=== PATIENT | female | born 2000 | race Caucasian/White ===

== ENCOUNTER 2020-03-20 10:15 | Emergency (ER) | payer SELFPAY ==
[~2020-03-20] VITALS: Ht 152.4 cm; Wt 54.0 kg
[2020-03-20 11:37] LABS: BILIRUBIN,URINE NEGATIVE (NEG); CLARITY,URINE CLEAR; COLOR,URINE YELLOW; NITRITE,URINE NEGATIVE (NEG); PROTEIN,URINE NEGATIVE (NEG-TRACE)
[2020-03-20 11:51] LABS: RBC,URINE OCC /HPF (0-2)
[2020-03-20 11:52] LABS: BACTERIA,URINE MANY /HPF (0-FEW)
[2020-03-20 13:00] VITALS: BP 107/52
[2020-03-20] MEDS ORDERED: CEPH500T PO (13:33)
[2020-03-20] MEDS ORDERED: PNV1TABL12 PO (13:33)
--- NOTE | 2020-03-20 13:34 | PHYS DOC ---
Past Medical History Past Medical History: No Pertinent History Past Surgical History: No Surgical History Smoking Status: Never Smoker Alcohol Use: None Drug Use: None General Adult EDM: Chief Complaint: ABDOMINAL PAIN HPI: HPI: Patient is a 19 year old female presents emergency department complaining of lo w abdomen cramping off and on for the past 2 weeks. Patient states it feels just like her normal menstrual cramping. Patient states her last menstrual period was February 022019. Patient states that she has a history of irregular menstrual cycles. Patient states that when she was considering whether or not she could be she had a brief episode of dizziness that lasted 5 to 10 seconds yesterday morning. Patient denies any vaginal discharge, denies any urinary tract infection type signs and symptoms, denies STI concerns. Patient states no one else living of her home is having the same symptoms that she. Patient denies any other physical complaints or physical symptoms. Review of Systems: Review of Systems: 14 body systems of review of systems have been reviewed. See HPI for pertinent positives and negative responses, otherwise all other systems are negative, nonpertinent or noncontributory. Heart Score: Risk Factors: Risk Factors: DM, Current or recent (<one month) smoker, HTN, HLP, family history of CAD, obesity. Risk Scores: Score 0 - 3: 2.5% MACE over next 6 weeks - Discharge Home Score 4 - 6: 20.3% MACE over next 6 weeks - Admit for Clinical Observation Score 7 - 10: 72.7% MACE over next 6 weeks - Early Invasive Strategies Allergies: Allergies: Allergies Coded Allergies Type Severity Reaction Last Updated Verified No Known Drug Allergies 07/07/14 No Physical Exam: PE: Constitutional: Well developed, well nourished, no acute distress, non-toxic appearance. HENT: Normocephalic, atraumatic, bilateral external ears normal, oropharynx moist, no oral exudates, nose normal. Eyes: PERRLA, EOMI, conjunctiva normal, no discharge. Neck: Normal range of motion, no tenderness, supple, no stridor. Cardiovascular:Heart rate regular rhythm, no murmur Lungs & Thorax: Bilateral breath sounds clear to auscultation Abdomen: Bowel sounds normal, soft, no tenderness, no masses, no pulsatile masses. Skin: Warm, dry, no erythema, no rash. Back: No tenderness, no CVA tenderness. Extremities: No tenderness, no cyanosis, no clubbing, ROM intact, no edema. Neurologic: Alert and oriented X 3, normal motor function, normal sensory function, no focal deficits noted. Psychologic: Affect normal, judgement normal, mood normal. Current Patient Data: Labs: Laboratory Tests Test 03/20/20 10:55 03/20/20 10:58 Urine Collection Type Unknown Urine Color Yellow Urine Clarity Clear Urine pH 6.0 Urine Specific [place] 1.025 Urine Protein Negative mg/dL Urine Glucose (UA) Negative mg/dL Urine Ketones (Stick) 40 mg/dL Urine Blood Negative Urine Nitrite Negative Urine Bilirubin Negative Urine Urobilinogen Dipstick 1.0 mg/dL Urine Leukocyte Esterase Trace Urine RBC Occ /HPF Urine WBC 1-4 /HPF Urine Squamous Epithelial Cells Many /LPF Urine Bacteria Many /HPF Urine Mucus Marked /LPF Bedside Urine HCG, Qualitative Hcg positive Laboratory Tests Test 03/20/20 10:55 03/20/20 10:58 Urine Collection Type Unknown Urine Color Yellow Urine Clarity Clear Urine pH 6.0 (<5.0-8.0) Urine Specific [place] 1.025 (1.000-1.030) Urine Protein Negative mg/dL (NEG-TRACE) Urine Glucose (UA) Negative mg/dL (NEG) Urine Ketones (Stick) 40 mg/dL (NEG) Urine Blood Negative (NEG) Urine Nitrite Negative (NEG) Urine Bilirubin Negative (NEG) Urine Urobilinogen Dipstick 1.0 mg/dL (0.2 mg/dL) Urine Leukocyte Esterase Trace (NEG) Urine RBC Occ /HPF (0-2) Urine WBC 1-4 /HPF (0-4) Urine Squamous Epithelial Cells Many /LPF Urine Bacteria Many /HPF (0-FEW) Urine Mucus Marked /LPF POC Urine HCG, Qualitative Hcg positive (Negative) Vital Signs: Vital Signs Date Time Temp Pulse Resp B/P (MAP) Pulse Ox O2 Delivery O2 Flow Rate FiO2 03/20/20 11:04 98.5 84 21 132/77 (95) 99 Room Air 98.5 EKG: EKG: [] Radiology/Procedures: Radiology/Procedures: [] Course & Med Decision Making: Course & Med Decision Making Pertinent Labs and Imaging studies reviewed. (See chart for details) 19-year-old female, vital signs reviewed, presents emergency department with intermittent low abdomen pain. Physical exam was unremarkable. Urine was concerning for simple cystitis, the patient has . She is now a G1, P0. None concerning signs and symptoms of miscarriage. Discussed positive test with patient and urinary tract infection. Patient gave verbal understanding of discharge home instructions, antibiotic use and vitamin use, follow-up with OB specialist soon, return to ER precautions and concerns, patient discharged home without incident. Impression: #1 first trimester #2 urinary tract infection Dragon Disclaimer: Dragmillie Disclaimer: This electronic medical record was generated, in whole or in part, using a voice recognition dictation system. Departure Departure Impression: Primary Impression: Qualified Codes: Z3A.01 - Less than 8 weeks gestation of Additional Impression: UTI (urinary tract infection) Qualified Codes: N30.00 - Acute cystitis without hematuria Disposition: 01 DC HOME SELF CARE/HOMELESS Condition: GOOD Referrals: NO PCP (PCP) SILAS GORDON MD Patient Instructions: ABCs of , - Urinary Tract Infection Additional Instructions: Take antibiotics and vitamin as prescribed, follow-up with an H[employer]ER soon to follow your , return to the emergency department for worsening symptoms. EMERGENCY DEPARTMENT GENERAL DISCHARGE INSTRUCTIONS Thank you for coming to [facility] Emergency Department (ED) today and trusting us with you care. We trust that you had a positive experience in our Emergency Department. If you wish to speak to the department management, you may call the Director at [phone]. YOUR FOLLOW UP INSTRUCTIONS ARE FOLLOWS: 1. Do you have a private Doctor? If you do not have a private doctor, please ask for a resource list of physicians or clinics that may be able to assist you with follow up care. 2. The Emergency Physicain has interpreted your x-rays. The X-Ray specialist will also review them. If there is a change in the findings, you will be notified in 48 hours when at all possible. 3. A lab test or culture has been done, your results will be reviewed and you will be notified if you need a change in treatment. ADDITIONAL INSTRUCTIONS AND INFORMATION: 1. Your care today has been supervised by a physician who is specially trained in emergency care. Many problems require more than one evaluation for a complete diagnosis and treatment. We recommend that you schedule your follow up appointment as recommended to ensure complete treatment of you illness or injury. If you are unable to obtain follow up care and continue to have a problem, or if your condition worsens, we recommend that you return to the ED. 2. We are not able to safely determine your condition over the phone nor are we able to give sound medical advice over the phone. For these safety reasons, if you call for medical advice we will ask you to come to the ED for further evaluation. 3. If you have any questions regarding these discharge instructions please call the ED at [phone]. SAFETY INFORMATION: In the interest of safety, wellness, and injury prevention; we encourage you to wear your sealbelt, if you smoke; quite smoking, and we encourage family to use a protective helmet for bicycling and other sporting events that present an increased risk for head injury. IF YOUR SYMPTOMS WORSEN OR NEW SYMPTOMS DEVELOP, OR YOU HAVE CONCERNS ABOUT YOUR CONDITION; OR IF YOUR CONDITION WORSENS WHILE YOU ARE WAITING FOR YOUR FOLLOW UP APPOINTMENT; EITHER CONTACT YOUR PRIMARY CARE DOCTOR, THE PHYSICIAN WHOSE NAME AND NUMBER YOU WERE GIVEN, OR RETURN TO THE ED IMMEDIATELY. Scripts Pnv Cmb#21/Iron/Folic Acid ( COMPLETE CAPLET) 1 Each Tablet 1 EACH PO DAILY for for 30 Days, #30 TAB 0 Refills Prov: HIRAL RYAN APRN 03/20/20 Cephalexin (CEPHALEXIN) 500 Mg Tablet 500 MG PO TID for UTI for 7 Days, #21 TAB 0 Refills Prov: HIRAL RYAN APRN 03/20/20 HIRAL RYAN APRN Mar 20, 2020 13:34
== END 2020-03-20 13:51 | disposition home or self-care (01) ==
LOC: ER 10:15
DX: N30.00 Acute cystitis without hematuria (principal); R42 Dizziness and giddiness; Z3A.01 Less than 8 weeks gestation of pregnancy
CPT/HCPCS: 81001; 81025; 87086; 99283